=== PATIENT | female | born 1985 | race Caucasian/White ===

== ENCOUNTER 2019-04-23 00:02 | Inpatient (IN) | payer OTHER ==
[~2019-04-23] VITALS: Ht 162.6 cm; Wt 90.0 kg
[2019-04-23] MEDS ORDERED: VITAFOL-OB+DHA1 EACH PO (00:58)
[2019-04-23] MEDS ORDERED: ACYCLOVIR400 MG PO (01:01)
[2019-04-23] MEDS ORDERED: LATUDA20 MG PO (01:02)
--- NOTE | 2019-04-23 08:13 | PR ---
[facility] [address] [facility] [place], [place] [address] Signed Progress Notes IP Datetime Report Generated by CPN: 04/23/2019 08:12 PROGRESS NOTES: [id number] Impression: Normal progression of labor Procedures: Artificial ROM Plan: Continue present management; Anticipate Vaginal Delivery VITAL SIGNS: [id number] Vital Signs: Reviewed; Within Normal Limits EXAM: [id number] Dilatation: 2.0 Effacement: 20 Station: -2 Uterine Contractions: irregular MEMBRANES: [id number] Membrane Status: Ruptured Amniotic Fluid Color: Clear ROM Note: AROM without difficulty, with moderated amount cledar fluid Comments: Doing well, would like Epidural later. Fetus A: [id number] FHR Baseline: 135 Variability: Moderate 6-25bpm Accelerations: 15X15 Presentation: Vertex Fetus B: [id number] Signing Physician: Christina Khan MD Copies: ~ *Electronically Signed* 04/23/19811 CHRISTINA KHAN MD PATIENT NAME: HENRIETTA EDUARDO PROGRESS NOTE DATE OF : 83 PHYSICIAN: CHRISTINA KHAN MD RPT #: [id number] REPORT IS CONFIDENTIAL AND NOT TO BE RELEASED WITHOUT AUTHORIZATION
--- NOTE | 2019-04-23 11:54 | PR ---
[facility] [address] [facility] [place], [place] [address] Signed Progress Notes IP Datetime Report Generated by CPN: 04/23/2019 11:54 PROGRESS NOTES: [id number] Impression: Normal progression of labor Procedures: Artificial ROM Plan: Continue present management; Anticipate Vaginal Delivery VITAL SIGNS: [id number] Vital Signs: Reviewed; Within Normal Limits EXAM: [id number] Dilatation: 3.0 Effacement: 50 Station: -2 Uterine Contractions: irregular MEMBRANES: [id number] Membrane Status: Ruptured Amniotic Fluid Color: Clear ROM Note: AROM without difficulty, with moderated amount cledar fluid Comments: contractions getting stronger, would like EPiddrual later Fetus A: [id number] FHR Baseline: 130 Variability: Moderate 6-25bpm Accelerations: 15X15 Presentation: Vertex Fetus B: [id number] Signing Physician: Christina Khan MD Copies: ~ *Electronically Signed* 04/23/19 1154 CHRISTINA KHAN MD PATIENT NAME: HENRIETTA EDUARDO PROGRESS NOTE DATE OF : 83 PHYSICIAN: CHRISTINA KHAN MD RPT #: [id number] REPORT IS CONFIDENTIAL AND NOT TO BE RELEASED WITHOUT AUTHORIZATION
--- NOTE | 2019-04-23 19:28 | PR ---
[facility] [address] [facility] [place], [place] [address] Signed Progress Notes IP Datetime Report Generated by CPN: 04/23/2019 19:28 PROGRESS NOTES: [id number] Impression: Slow Progression of Labor Procedures: Intrauterine Pressure Catheter; Scalp Electrode Plan: Continue present management; Augmentation; Anticipate Vaginal Delivery VITAL SIGNS: [id number] Vital Signs: Reviewed; Within Normal Limits EXAM: [id number] Dilatation: 6.0 Effacement: 70 Station: -3 Uterine Contractions: every 2-3 minutes MEMBRANES: [id number] Membrane Status: Ruptured Amniotic Fluid Color: Clear ROM Note: AROM without difficulty, with moderated amount cledar fluid Comments: Comfortable with Epidural, will increase Pitocin as needed Fetus A: [id number] FHR Baseline: 130 Variability: Moderate 6-25bpm Accelerations: 15X15 Presentation: Vertex Fetus B: [id number] Signing Physician: Juan Khan MD Copies: ~ *Electronically Signed* 04/23/191927 JUAN KHAN MD PATIENT NAME: HENRIETTA EDUARDO DAREK PROGRESS NOTE DATE OF : 83 PHYSICIAN: JUAN KHAN MD RPT #: [id number] REPORT IS CONFIDENTIAL AND NOT TO BE RELEASED WITHOUT AUTHORIZATION
--- NOTE | 2019-04-24 11:49 | PR ---
[facility] [address] [facility] [place] [address] Signed PP Progress Notes Datetime Report Generated by CPN: 04/24/2019 11:49 SUBJECTIVE: [id number] Pain: Within normal limits Nausea/Vomiting: Denies Vital Signs: [id number] Vital Signs: Reviewed; Within Normal Limits Notable Details: PP Hgb/Hct = 12.0/35.1 EXAM: [id number] Abdomen/Uterus: Normal Lochia: Normal Extremities: Normal IMPRESSION/PLAN/PROCEDURES: [id number] Impression: Normal progression Plan: Continue present management Procedures: None Progress Notes: Doing well, without complaint. Signing Physician: Christina Khan MD Copies: ~ *Electronically Signed* 04/24/19 1149 CHRISTINA KHAN MD PATIENT NAME: HENRIETTA EDUARDO PROGRESS NOTE DATE OF : 83 PHYSICIAN: CHRISTINA KHAN MD RPT #: [id number] REPORT IS CONFIDENTIAL AND NOT TO BE RELEASED WITHOUT AUTHORIZATION
--- NOTE | 2019-04-25 09:04 | PR ---
[facility] [address] [place] [address] Signed PP Progress Notes Datetime Report Generated by CPN: 04/25/2019 09:04 SUBJECTIVE: [id number] Pain: Within normal limits Nausea/Vomiting: Denies Vital Signs: [id number] Vital Signs: Reviewed; Within Normal Limits Notable Details: PP Hgb/Hct = 12.3/36.9 EXAM: [id number] Abdomen/Uterus: Normal Lochia: Normal Extremities: Normal IMPRESSION/PLAN/PROCEDURES: [id number] Impression: Normal progression Plan: Discharge Procedures: None Progress Notes: Doing wellm, without complaint, ready to go home. Signing Physician: Christina Khan MD Copies: ~ *Electronically Signed* 04/25/19903 CHRISTINA KHAN MD PATIENT NAME: HENRIETTA EDUARDO PROGRESS NOTE DATE OF : 83 PHYSICIAN: CHRISTINA KHAN MD RPT #: [id number] REPORT IS CONFIDENTIAL AND NOT TO BE RELEASED WITHOUT AUTHORIZATION
== END 2019-04-25 11:15 | disposition home or self-care (01) | DRG 806 ==
LOC: FBC 00:02
PROVIDERS: ADMIT General Practice
PROC: 10E0XZZ Delivery of Products of Conception, External Approach (ICD-10-PCS; principal; 2019-04-23)
PROC: 3E0P7VZ Introduction of Hormone into Female Reproductive, Via Natural or Artificial Opening (ICD-10-PCS; 2019-04-23)
PROC: 10907ZC Drainage of Amniotic Fluid, Therapeutic from Products of Conception, Via Natural or Artificial Opening (ICD-10-PCS; 2019-04-23)
PROC: 0HQ9XZZ Repair Perineum Skin, External Approach (ICD-10-PCS; 2019-04-23)
PROC: 10H07YZ Insertion of Other Device into Products of Conception, Via Natural or Artificial Opening (ICD-10-PCS; 2019-04-23)
PROC: 00HU33Z Insertion of Infusion Device into Spinal Canal, Percutaneous Approach (ICD-10-PCS; 2019-04-23)
PROC: 3E0R3BZ Introduction of Anesthetic Agent into Spinal Canal, Percutaneous Approach (ICD-10-PCS; 2019-04-23)
DX: O48.0 Post-term pregnancy (principal); O98.32 Other infections with a predominantly sexual mode of transmission complicating childbirth; Z37.0 Single live birth; Z3A.41 41 weeks gestation of pregnancy; O70.0 First degree perineal laceration during delivery; O69.81X0 Labor and delivery complicated by cord around neck, without compression, not applicable or unspecified; O69.2XX0 Labor and delivery complicated by other cord entanglement, with compression, not applicable or unspecified; O99.334 Smoking (tobacco) complicating childbirth; F17.210 Nicotine dependence, cigarettes, uncomplicated; A60.00 Herpesviral infection of urogenital system, unspecified; O99.344 Other mental disorders complicating childbirth; F43.10 Post-traumatic stress disorder, unspecified; F31.9 Bipolar disorder, unspecified; Z79.899 Other long term (current) drug therapy
CPT/HCPCS: 36415; 85027; A9270; J2590; J2795; J3010; J7121

== ENCOUNTER 2022-07-19 21:04 | Emergency (ER) | payer OTHER ==
[~2022-07-19] VITALS: Ht 162.6 cm; Wt 73.0 kg
[~2022-07-19 21:04] MED LIST: ACYCLOVIR400 MG PO; LATUDA20 MG PO; VITAFOL-OB+DHA1 EACH PO
[2022-07-19] MEDS ORDERED: ASHLYNA 0.15-01 EACH PO (21:19)
[2022-07-19] MEDS ORDERED: MACROBID 100 M100 MG PO (22:39)
[2022-07-19] MEDS ORDERED: PYRIDIUM200 MG PO (22:39)
[2022-07-19 22:53] VITALS: BP 130/82
== END 2022-07-19 22:54 | disposition home or self-care (01) ==
LOC: ED 21:04
DX: N39.0 Urinary tract infection, site not specified (principal); Z87.891 Personal history of nicotine dependence; Z91.018 Allergy to other foods; Z79.899 Other long term (current) drug therapy
CPT/HCPCS: 36415; 80048; 81001; 84703; 85025; 99283